=== PATIENT | female | born 1965 | race Caucasian/White ===

== ENCOUNTER 2023-12-26 18:21 | Emergency (ER) | payer OTHER ==
[~2023-12-26] VITALS: Ht 167.6 cm; Wt 86.2 kg
[2023-12-26 19:57] VITALS: BP 152/91; TEMP 99.2; O2SAT 100
== END 2023-12-26 20:51 | disposition left against medical advice (07) ==
LOC: ER 18:39
DX: R09.81 Nasal congestion (principal); R50.9 Fever, unspecified; R44.0 Auditory hallucinations; Z53.21 Procedure and treatment not carried out due to patient leaving prior to being seen by health care provider